=== PATIENT | male | born 1940 | race Caucasian/White ===

== ENCOUNTER 2022-03-16 17:40 | Inpatient (IN) | payer OTHER ==
[~2022-03-16] VITALS: Ht 162.6 cm; Wt 65.3 kg
[2022-03-16 17:50] VITALS: BP_SYST 150
[2022-03-16] MEDS ORDERED: NACL 0.9% 1,000 ML IV ONE (18:15)
[2022-03-16] MEDS ORDERED: LIP80 PO (18:30)
[2022-03-16] MEDS ORDERED: ACET325T PO (18:30)
[2022-03-16] MEDS ORDERED: QUET50TA PO (18:30)
[2022-03-16] MEDS ORDERED: ASPI-1393 PO (18:30)
[2022-03-16] MEDS ORDERED: ASCO500W7 PO (18:30)
[2022-03-16] MEDS ORDERED: CLOP75TA32 PO (18:30)
[2022-03-16] MEDS ORDERED: NIFE-55 PO (18:30)
[2022-03-16] MEDS ORDERED: CYAN100010 PO (18:30)
[2022-03-16] MEDS ORDERED: AMIO400T5 PO (18:30)
[2022-03-16] MEDS ORDERED: PRO40 PO (18:30)
[2022-03-16] MEDS ORDERED: ZINC500P17 MC (18:30)
[2022-03-16] MEDS ORDERED: DRON400T PO (18:30)
[2022-03-16] MEDS ORDERED: ALBU2.5V7 INH (18:30)
[2022-03-16] MEDS ORDERED: FURO20TA4 PO (18:44)
[2022-03-16] MEDS ORDERED: DOCU-144 PO (18:44)
[2022-03-16] MEDS ORDERED: POLY17PO4 PO (18:44)
[2022-03-16] MEDS ORDERED: METO50TA16 PO (18:44)
[2022-03-16] MEDS ORDERED: DEPS125 PO (18:44)
[2022-03-16] MEDS ORDERED: LISI10TA29 PO (18:44)
[2022-03-16] MEDS ORDERED: HAL2 PO (18:44)
[2022-03-16] MEDS ORDERED: NEU300 PO (18:44)
[2022-03-16 18:51] LABS: BASOPHILS % (AUTO) 0.4 % (0.0-2.0); EOSINOPHILS % (AUTO) 0.3 % (0.0-4.0); HEMATOCRIT 36.8 % (36-54); HEMOGLOBIN 11.6 g/dL (14.0-18.0); LYMPHOCYTES # (AUTO) 0.6 K/uL (1.0-5.5); LYMPHOCYTES % (AUTO) 9.8 % (20.5-51.5); MEAN CORPUSCULAR HEMOGLOBIN 30 pg (27-31); MEAN CORPUSCULAR HGB CONC 32 % (32-36); MEAN CORPUSCULAR VOLUME 93 fL (79.0-98.0); MONOCYTES # (AUTO) 0.5 K/uL (0.0-1.0); MONOCYTES % (AUTO) 8.8 % (1.7-9.3); NEUTROPHILS # (AUTO) 4.7 K/uL (1.8-7.7); NEUTROPHILS % (AUTO) 80.7 % (40.0-70.0); PLATELET COUNT (AUTO) 202 K/uL (130-430); RED BLOOD CELL COUNT(AUTO) 3.94 MIL/uL (4.2-6.2); RED CELL DISTRIBUTION WIDTH 17.3 % (9.0-15.0); WHITE BLOOD COUNT (AUTO) 5.8 K/uL (4.8-10.8)
[2022-03-16 19:02] LABS: ANION GAP 3 (5-15); CALCIUM 8.8 mg/dL (8.4-11.0); CHLORIDE 103 mmol/L (98-107); CREATININE 0.76 mg/dL (0.55-1.30); GLUCOSE 98 mg/dL (70-99); POTASSIUM 3.5 mmol/L (3.5-5.1); SODIUM SERUM 145 mmol/L (136-145); UREA NITROGEN, BLOOD 12 mg/dL (8-21)
[2022-03-16 19:07] LABS: INR 1.1 (0.80-1.20); PROTHROMBIN TIME 11.1 SECS (9.5-12.5)
[2022-03-16 19:11] LABS: ALANINE AMINOTRANSFERASE 22 U/L (12-78); ALBUMIN 2.7 g/dL (3.4-4.8); ASPARTATE AMINOTRANSFERASE 24 U/L (10-37); TOTAL BILIRUBIN 0.7 mg/dL (0.0-1.0)
[2022-03-16 19:38] LABS: BILIRUBIN,URINE NEGATIVE (NEGATIVE); BLOOD, URINE NEGATIVE (NEGATIVE); CLARITY/URINE CLEAR (CLEAR); COLOR,URINE YELLOW (YELLOW); GLUCOSE,URINE NEGATIVE (NEGATIVE); KETONES,URINE TRACE (NEGATIVE); LEUKOCYTE ESTERASE ,URINE NEGATIVE (NEGATIVE); NITRITE, URINE NEGATIVE (NEGATIVE); PROTEIN URINE NEGATIVE (NEGATIVE)
[2022-03-16 23:58] VITALS: BP_SYST 165
[2022-03-17] VITALS: BP_SYST 165
[2022-03-17 08:00] VITALS: BP_SYST 166
[2022-03-17] MEDS ORDERED: DEXAMETHASONE SOD PHOSPHATE 10 MG/ML VIAL IVP ONE (08:00)
[2022-03-17] MEDS: ENOXAPARIN SODIUM 40 MG/0.4 ML SYRINGE SUBCUT SCH (09:30)
[2022-03-17] MEDS: D5/0.45 NS 1,000 ML IV SCH (12:45)
[2022-03-17 12:50] VITALS: BP_SYST 113
[2022-03-17 16:42] VITALS: BP_SYST 141
[2022-03-17 20:00] VITALS: BP_SYST 147
[2022-03-17] MEDS: ASCORBIC ACID 500 MG TABLET PO SCH (21:43)
[2022-03-18 00:22] VITALS: BP_SYST 159
[2022-03-18] MEDS: D5/0.45 NS 1,000 ML IV SCH ×3 (02:05→17:37)
[2022-03-18 04:00] VITALS: BP_SYST 144
[2022-03-18 06:35] LABS: BASOPHILS % (AUTO) 0.4 % (0.0-2.0); EOSINOPHILS % (AUTO) 0.5 % (0.0-4.0); HEMATOCRIT 34.4 % (36-54); HEMOGLOBIN 11.1 g/dL (14.0-18.0); LYMPHOCYTES # (AUTO) 0.8 K/uL (1.0-5.5); LYMPHOCYTES % (AUTO) 10.5 % (20.5-51.5); MEAN CORPUSCULAR HEMOGLOBIN 30 pg (27-31); MEAN CORPUSCULAR HGB CONC 32 % (32-36); MEAN CORPUSCULAR VOLUME 93 fL (79.0-98.0); MONOCYTES # (AUTO) 0.8 K/uL (0.0-1.0); MONOCYTES % (AUTO) 11.2 % (1.7-9.3); NEUTROPHILS # (AUTO) 5.8 K/uL (1.8-7.7); NEUTROPHILS % (AUTO) 77.4 % (40.0-70.0); PLATELET COUNT (AUTO) 186 K/uL (130-430); RED BLOOD CELL COUNT(AUTO) 3.69 MIL/uL (4.2-6.2); RED CELL DISTRIBUTION WIDTH 17.3 % (9.0-15.0); WHITE BLOOD COUNT (AUTO) 7.5 K/uL (4.8-10.8)
[2022-03-18 07:08] LABS: ANION GAP 4 (5-15); CALCIUM 8.5 mg/dL (8.4-11.0); CHLORIDE 104 mmol/L (98-107); CREATININE 0.61 mg/dL (0.55-1.30); GLUCOSE 87 mg/dL (70-99); POTASSIUM 3.3 mmol/L (3.5-5.1); SODIUM SERUM 143 mmol/L (136-145); UREA NITROGEN, BLOOD 18 mg/dL (8-21)
[2022-03-18 08:00] VITALS: BP_SYST 150
[2022-03-18] MEDS: ASCORBIC ACID 500 MG TABLET PO SCH ×2 (08:20→20:56)
[2022-03-18] MEDS: ENOXAPARIN SODIUM 40 MG/0.4 ML SYRINGE SUBCUT SCH (08:20)
[2022-03-18] MEDS: DEXAMETHASONE SOD PHOSPHATE 10 MG/ML VIAL IVP SCH (08:20)
[2022-03-18] MEDS: CHOLECALCIFEROL (VITAMIN D3) 5,000 UNIT TABLET PO SCH ×2 (08:21→08:22)
[2022-03-18] MEDS ORDERED: hydrALAZINE HCL 20 MG/ML VIAL IVP PRN (11:30)
[2022-03-18 11:59] VITALS: BP_SYST 146
[2022-03-18] MEDS ORDERED: POTASSIUM CHLORIDE 20 MEQ in NS 250 ML IV ONE (16:00)
[2022-03-18 16:20] VITALS: BP_SYST 140
[2022-03-18 20:00] VITALS: BP_SYST 153
[2022-03-19 00:49] VITALS: BP_SYST 164
[2022-03-19] MEDS: D5/0.45 NS 1,000 ML IV SCH (01:47)
[2022-03-19 08:15] VITALS: BP_SYST 134
[2022-03-19 08:20] LABS: BASOPHILS % (AUTO) 0.2 % (0.0-2.0); EOSINOPHILS % (AUTO) 0.3 % (0.0-4.0); HEMATOCRIT 33.7 % (36-54); LYMPHOCYTES # (AUTO) 0.7 K/uL (1.0-5.5); LYMPHOCYTES % (AUTO) 12.4 % (20.5-51.5); MEAN CORPUSCULAR HEMOGLOBIN 30 pg (27-31); MEAN CORPUSCULAR HGB CONC 33 % (32-36); MEAN CORPUSCULAR VOLUME 92 fL (79.0-98.0); MONOCYTES # (AUTO) 0.6 K/uL (0.0-1.0); MONOCYTES % (AUTO) 9.6 % (1.7-9.3); NEUTROPHILS # (AUTO) 4.5 K/uL (1.8-7.7); NEUTROPHILS % (AUTO) 77.5 % (40.0-70.0); PLATELET COUNT (AUTO) 187 K/uL (130-430); RED BLOOD CELL COUNT(AUTO) 3.65 MIL/uL (4.2-6.2); RED CELL DISTRIBUTION WIDTH 17.2 % (9.0-15.0); WHITE BLOOD COUNT (AUTO) 5.8 K/uL (4.8-10.8)
[2022-03-19 09:28] LABS: ANION GAP 2 (5-15); CALCIUM 7.9 mg/dL (8.4-11.0); CHLORIDE 104 mmol/L (98-107); CREATININE 0.66 mg/dL (0.55-1.30); GLUCOSE 115 mg/dL (70-99); POTASSIUM 3.2 mmol/L (3.5-5.1); SODIUM SERUM 141 mmol/L (136-145); UREA NITROGEN, BLOOD 16 mg/dL (8-21)
[2022-03-19] MEDS: CHOLECALCIFEROL (VITAMIN D3) 5,000 UNIT TABLET PO SCH (09:59)
[2022-03-19] MEDS: ENOXAPARIN SODIUM 40 MG/0.4 ML SYRINGE SUBCUT SCH (09:59)
[2022-03-19] MEDS: ASCORBIC ACID 500 MG TABLET PO SCH ×2 (09:59→20:42)
[2022-03-19] MEDS: DEXAMETHASONE SOD PHOSPHATE 10 MG/ML VIAL IVP SCH (11:09)
[2022-03-19 12:15] VITALS: BP_SYST 137
[2022-03-19 16:15] VITALS: BP_SYST 139
[2022-03-19 20:00] VITALS: BP_SYST 133
[2022-03-20 00:47] VITALS: BP_SYST 159
[2022-03-20 05:15] VITALS: BP_SYST 155
[2022-03-20 08:00] VITALS: BP_SYST 156
[2022-03-20 09:00] LABS: BASOPHILS % (AUTO) 0.3 % (0.0-2.0); EOSINOPHILS % (AUTO) 0.2 % (0.0-4.0); HEMATOCRIT 33.5 % (36-54); HEMOGLOBIN 10.8 g/dL (14.0-18.0); LYMPHOCYTES # (AUTO) 0.9 K/uL (1.0-5.5); LYMPHOCYTES % (AUTO) 13.2 % (20.5-51.5); MEAN CORPUSCULAR HEMOGLOBIN 30 pg (27-31); MEAN CORPUSCULAR HGB CONC 32 % (32-36); MEAN CORPUSCULAR VOLUME 94 fL (79.0-98.0); MONOCYTES # (AUTO) 0.4 K/uL (0.0-1.0); MONOCYTES % (AUTO) 5.5 % (1.7-9.3); NEUTROPHILS # (AUTO) 5.5 K/uL (1.8-7.7); NEUTROPHILS % (AUTO) 80.8 % (40.0-70.0); PLATELET COUNT (AUTO) 207 K/uL (130-430); RED BLOOD CELL COUNT(AUTO) 3.58 MIL/uL (4.2-6.2); RED CELL DISTRIBUTION WIDTH 17.2 % (9.0-15.0); WHITE BLOOD COUNT (AUTO) 6.8 K/uL (4.8-10.8)
[2022-03-20 09:27] LABS: ANION GAP 2 (5-15); CALCIUM 8.6 mg/dL (8.4-11.0); CHLORIDE 102 mmol/L (98-107); CREATININE 0.77 mg/dL (0.55-1.30); GLUCOSE 158 mg/dL (70-99); POTASSIUM 3.7 mmol/L (3.5-5.1); SODIUM SERUM 137 mmol/L (136-145); UREA NITROGEN, BLOOD 14 mg/dL (8-21)
[2022-03-20] MEDS: ENOXAPARIN SODIUM 40 MG/0.4 ML SYRINGE SUBCUT SCH (10:20)
[2022-03-20] MEDS: CHOLECALCIFEROL (VITAMIN D3) 5,000 UNIT TABLET PO SCH (10:21)
[2022-03-20] MEDS: ASCORBIC ACID 500 MG TABLET PO SCH ×2 (10:21→20:50)
[2022-03-20] MEDS: D5/0.45 NS 1,000 ML IV SCH ×2 (10:22→20:53)
[2022-03-20] MEDS: DEXAMETHASONE SOD PHOSPHATE 10 MG/ML VIAL IVP SCH (10:26)
[2022-03-20 12:00] VITALS: BP_SYST 158
[2022-03-20 16:00] VITALS: BP_SYST 152
[2022-03-20 20:00] VITALS: BP_SYST 138
[2022-03-21 02:00] VITALS: BP_SYST 145
[2022-03-21 06:52] LABS: BASOPHILS % (AUTO) 0.2 % (0.0-2.0); HEMOGLOBIN 11.8 g/dL (14.0-18.0); LYMPHOCYTES # (AUTO) 0.9 K/uL (1.0-5.5); LYMPHOCYTES % (AUTO) 9.8 % (20.5-51.5); MEAN CORPUSCULAR HEMOGLOBIN 30 pg (27-31); MEAN CORPUSCULAR HGB CONC 32 % (32-36); MEAN CORPUSCULAR VOLUME 93 fL (79.0-98.0); MONOCYTES # (AUTO) 0.6 K/uL (0.0-1.0); NEUTROPHILS # (AUTO) 7.4 K/uL (1.8-7.7); PLATELET COUNT (AUTO) 188 K/uL (130-430); RED BLOOD CELL COUNT(AUTO) 3.98 MIL/uL (4.2-6.2); RED CELL DISTRIBUTION WIDTH 17.3 % (9.0-15.0); WHITE BLOOD COUNT (AUTO) 8.9 K/uL (4.8-10.8)
[2022-03-21 07:19] LABS: ANION GAP 6 (5-15); CALCIUM 8.1 mg/dL (8.4-11.0); CHLORIDE 104 mmol/L (98-107); CREATININE 0.74 mg/dL (0.55-1.30); GLUCOSE 113 mg/dL (70-99); POTASSIUM 3.5 mmol/L (3.5-5.1); SODIUM SERUM 140 mmol/L (136-145); UREA NITROGEN, BLOOD 20 mg/dL (8-21)
[2022-03-21 08:00] VITALS: BP_SYST 149
[2022-03-21] MEDS: CHOLECALCIFEROL (VITAMIN D3) 5,000 UNIT TABLET PO SCH (10:13)
[2022-03-21] MEDS: ASCORBIC ACID 500 MG TABLET PO SCH ×2 (10:13→21:00)
[2022-03-21] MEDS: ENOXAPARIN SODIUM 40 MG/0.4 ML SYRINGE SUBCUT SCH (10:13)
[2022-03-21 12:00] VITALS: BP_SYST 127
[2022-03-21] MEDS ORDERED: levoFLOXacin 250 MG TABLET PO ONE (12:30)
[2022-03-21 16:00] VITALS: BP_SYST 157
[2022-03-21] MEDS ORDERED: CHOL500013 PO (16:23)
[2022-03-21] MEDS ORDERED: ASC500 PO (16:23)
[2022-03-21 19:01] VITALS: BP_SYST 157
[2022-03-21 20:00] VITALS: BP_SYST 155
[2022-03-22 02:00] VITALS: BP_SYST 152
[2022-03-22] MEDS ORDERED: DECADRON 4 MG TABLET PO SCH (09:00)
[2022-03-22] MEDS ORDERED: levoFLOXacin 250 MG TABLET PO SCH (10:00)
== END 2022-03-22 05:00 | DRG 177 ==
LOC: SED 17:40 → STU 21:45
PROVIDERS: ADMIT Internal Medicine; ATTEND Internal Medicine
DX: U07.1 COVID-19 (principal); J12.82 Pneumonia due to coronavirus disease 2019; J96.01 Acute respiratory failure with hypoxia; I69.351 Hemiplegia and hemiparesis following cerebral infarction affecting right dominant side; G93.40 Encephalopathy, unspecified; I48.20 Chronic atrial fibrillation, unspecified; F29 Unspecified psychosis not due to a substance or known physiological condition; I10 Essential (primary) hypertension; E86.0 Dehydration; Z88.5 Allergy status to narcotic agent; Z88.2 Allergy status to sulfonamides; Z79.899 Other long term (current) drug therapy; Z79.01 Long term (current) use of anticoagulants
CPT/HCPCS: 36415; 70450-TC; 71045; 76376; 80048; 80053; 81003; 83605; 84484; 85025; 85610-TC; 85730-TC; 87040; 87081; 87086; 92610-GN; 93005; 96360; 96361; 97116-GP; 97163-GP; 97530-GP; 99285; G0378; J0360; J1100; J1650; J1956; J3480; J7030; J7050